=== PATIENT | female | born 2000 | race American Indian/Alaskan Native ===

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

== ENCOUNTER 2019-05-27 15:08 | Outpatient (CLI) | payer MEDICAID ==
[2019-05-27 15:56] LABS: Bacteria,Urine 1+ /HPF (Negative); Bilirubin,Urine NEG (Negative); Blood,Urine NEG (Negative); Color,Urine Yellow (Yellow); Mucus,Urine FEW /HPF; Protein,Urine <15 mg/dL mg/dL (Negative); Urobilinogen,Urine < 2.0 mg/dL (<2.0)
[2019-05-27 16:07] LABS: Hematocrit 34.4 % (30.3-42.9); Hemoglobin 11.7 gm/dl (10.1-14.3); Mean Corpuscular HGB Conc 34 % (30-34); Mean Corpuscular Volume 89 fl (79-97); Platelet Count 214 K/mm3 (140-440); Red Blood Count 3.89 M/mm3 (3.65-5.03); Red Cell Distribution Width 13.7 % (13.2-15.2)
[2019-05-27 16:30] LABS: Alanine Aminotransferase 12 units/L (7-56); Uric Acid 2.8 mg/dL (3.5-7.6)
[2019-05-27] MEDS ORDERED: ACETAMINOPHEN 500 MG TAB PO ONE (16:31)
[2019-05-27 17:24] VITALS: BP 123/64
--- NOTE | 2019-05-27 20:04 | Ultrasound Report ---
Limited obstetrical ultrasound INDICATION: Headache, possible preeclampsia, 38 week 3 day Term intrauterine is noted with fetus in a cephalic position. Cardiac activity was document ed with heart rate of 131 bpm. Amniotic fluid volume appears qualitatively acceptable for this stage of and MILTON is within normal limits at 9.3 cm. Anatomical survey was not performed and dating was not performed. BIOPHYSICAL PROFILE breathing movements: 2/2 movements: 2/2 posture and tone tone: 2/2 Qualitative amniotic fluid volume: 2/2 Total score: 8/8, within normal limits Signer Name: Martir Mathews MD Signed: 05/27/2019 7:59 PM Workstation Name: [email or web address]
[2019-05-28 20:10] LABS: Creatinine 24 Hour,Urine 1.3 (0.8-2.8); Creatinine,Urine 74.2 mg/dL (0.1-20.0)
== END 2019-05-27 18:18 | disposition home or self-care (01) ==
LOC: TRG 15:08
PROVIDERS: ATTEND Obstetrics & Gynecology
DX: O26.893 Other specified pregnancy related conditions, third trimester (principal); O47.1 False labor at or after 37 completed weeks of gestation; R51 Headache; Z3A.38 38 weeks gestation of pregnancy
CPT/HCPCS: 36415; 59025; 76815; 76819; 81001; 82565; 82570; 83615; 84156; 84450; 84460; 84550; 85027; 87086

== ENCOUNTER 2019-05-30 19:02 | Outpatient (CLI) | payer MEDICAID ==
[2019-05-30] MEDS ORDERED: ACETAMINOPHEN 325 MG TAB PO ONE (20:21)
[2019-05-30 20:32] VITALS: BP 130/67
== END 2019-05-30 21:06 | disposition home or self-care (01) ==
LOC: TRG 19:02
PROVIDERS: ATTEND Obstetrics & Gynecology
DX: O26.893 Other specified pregnancy related conditions, third trimester (principal); R51 Headache; Z3A.38 38 weeks gestation of pregnancy

== ENCOUNTER 2019-06-04 21:48 | Outpatient (CLI) | payer MEDICAID ==
[2019-06-04 22:17] VITALS: BP 116/56
--- NOTE | 2019-06-05 02:06 | Ultrasound Report ---
Limited OB ultrasound INDICATION: Amniotic fluid index FINDINGS: There is a single intrauterine in a cephalic presentation. heart rate is 119 bpm. Amniotic fluid index is 9.6 cm which is within the normal range. IMPRESSION: Amniotic fluid index is 9.6 cm. Signer Name: Jacob Ireland MD Signed: 06/05/2019 2:01 AM Workstation Name: [email or web address]
== END 2019-06-05 02:19 | disposition home or self-care (01) ==
LOC: TRG 21:48
PROVIDERS: ATTEND Obstetrics & Gynecology
DX: O42.92 Full-term premature rupture of membranes, unspecified as to length of time between rupture and onset of labor (principal); Z3A.39 39 weeks gestation of pregnancy
CPT/HCPCS: 76815

== ENCOUNTER 2019-06-06 02:53 | Inpatient (IN) | payer MEDICAID ==
[2019-06-06] MEDS ORDERED: ONDANSETRON 4 MG/2 ML INJ IV PRN ×2 (03:21→06:27)
[2019-06-06] MEDS ORDERED: fentaNYL 100 MCG/2 ML INJ IV PRN (03:21)
[2019-06-06] MEDS ORDERED: TERBUTALINE 1 MG/1 ML INJ SUB-Q PRN (03:21)
[2019-06-06] MEDS ORDERED: PROMETHAZINE 25 MG TAB PO PRN ×2 (03:21→06:27)
[2019-06-06] MEDS ORDERED: BUTORPHANOL 2 MG/1 ML INJ IV PRN (03:21)
[2019-06-06] MEDS ORDERED: AMPICILLIN/NS 2 GM/100 ML 2 GM/100 ML BAG IV ONE (03:21)
[2019-06-06] MEDS ORDERED: TERBUTALINE 1 MG/1 ML INJ IVP PRN (03:21)
[2019-06-06] MEDS ORDERED: MINERAL OIL 30 ML ORAL LIQD PO PRN (03:21)
[2019-06-06] MEDS ORDERED: LIDOCAINE (2%) 20 MG/1 ML VIAL 20 ML MDV INFILTRATI ONE (03:21)
[2019-06-06] MEDS ORDERED: NALOXONE 0.4 MG/1 ML INJ IV PRN (03:21)
[2019-06-06] MEDS ORDERED: ePHEDrine SULFATE 50 MG/1 ML INJ IV PRN (03:21)
[2019-06-06] MEDS: LACTATED RINGERS 1,000 ML IV SCH ×2 (03:57→05:37)
[2019-06-06] MEDS ORDERED: OXYTOCIN 20 UNIT/1000ML DRIP 20 UNITS/1,000 ML BAG IV SCH (04:00)
[2019-06-06 04:02] LABS: Hemoglobin 11.5 gm/dl (10.1-14.3); Mean Corpuscular HGB Conc 34 % (30-34); Mean Corpuscular Volume 88 fl (79-97); Platelet Count 213 K/mm3 (140-440); Red Blood Count 3.86 M/mm3 (3.65-5.03); Red Cell Distribution Width 13.5 % (13.2-15.2)
--- NOTE | 2019-06-06 05:40 | History and Physical Report ---
History of Present Illness Date of examination: 06/06/19 Date of admission: 06/06/19 03:21 Chief complaint: Contractions History of present illness: Pt is a 18 yo at at 39.6 weeks EGA who presents with regular uterine contractions. She reports positive movement and leaking fluid. She has received care with [facility] tubing operator since 14 weeks EGA, [place] [facility] [place] has been complicated by anemia and suspected left multicystic kidney and mild pericardial effusion. Fetus had an irregular heart rate, resolved at 37 weeks. Pt has had mildly elevated BP at the office, negative pree labs, always normotensive at hospital. Past History Past Medical History: no pertinent history Past Surgical History: no surgical history Family/Genetic History: none Social history: no significant social history - Obstetrical History Expected Date of Delivery: 06/07/19 Actual Gestation: 39 Week(s) 6 Day(s) : 1 Para: 0 Medications and Allergies Allergies Allergy/AdvReac Type Severity Reaction Status Date / Time No Known Allergies Allergy Verified 05/27/19 15:19 Home Medications Medication Instructions Recorded Confirmed Last Taken Type Docusate Sodium [Colace] 100 mg PO BID PRN #14 capsule 10/09/18 Unknown Rx Active Meds: Active Medications Butorphanol Tartrate (Stadol) 2 mg IV Q2H PRN PRN Reason: Pain , Severe (7-10) Ephedrine Sulfate (Ephedrine Sulfate) 10 mg IV Q2M PRN PRN Reason: Hypotension Fentanyl (Sublimaze) 100 mcg IV Q2H PRN PRN Reason: Labor Pain Last Admin: 06/06/19 04:33 Dose: 100 mcg Documented by: Oxytocin/Sodium Chloride (Pitocin/Ns 20 Unit/1000ml Drip) 20 units in 1,000 mls @ 125 mls/hr IV DIRECT MARIE Lactated Ringer's (Lactated Ringers) 1,000 mls @ 125 mls/hr IV DIRECT MARIE Last Admin: 06/06/19 03:57 Dose: 125 mls/hr Documented by: Ampicillin Sodium (Ampicillin/Ns 1 Gm/50 Ml) 1 gm in 50 mls @ 100 mls/hr IV Q4HR MARIE; Protocol Mineral Oil (Mineral Oil) 30 ml PO QHS PRN PRN Reason: Constipation Naloxone HCl (Naloxone) 0.1 mg IV Q2MIN PRN PRN Reason: Res Rate </= 8 or 02 SAT < 92% Ondansetron HCl (Zofran) 4 mg IV Q8H PRN PRN Reason: Nausea And Vomiting Promethazine HCl (Phenergan) 25 mg PO Q6H PRN PRN Reason: Nausea And Vomiting Terbutaline Sulfate (Brethine) 0.25 mg SUB-Q ONCE PRN PRN Reason: Hyperstimulation/Hypertonicity Terbutaline Sulfate (Brethine) 0.25 mg IVP ONCE PRN PRN Reason: Hyperstimulation/Hypertonicity Review of Systems All systems: negative Genitourinary: leakage of fluid, contractions - Vital Signs Vital signs: Vital Signs Temp Resp 97.0 F L 18 06/06/19 03:50 06/06/19 03:50 Temp Pulse Resp BP Pulse Ox 98.0 F 91 H 18 135/78 80 L 06/06/19 04:50 06/06/19 05:31 06/06/19 04:33 06/06/19 04:00 06/06/19 05:31 - Physical Exam Lungs: Positive: Normal air movement Abdomen: Positive: soft Results Result Diagrams: 06/06/19 03:30 All other labs normal. Assessment and Plan 18 yo at 39.6 weeks EGA Active labor GBS positive Membranes ruptured Suspected left multicystic kidney Mild pericardial effusion Admit for labor Notify peds of status Ampicillin prophylaxis Anticipate
--- NOTE | 2019-06-06 06:26 | Procedure Note ---
OB Delivery Note - Delivery Date of Delivery: 06/06/19 Surgeon: MARGE JONES ([facility]) Estimated blood loss: 300cc - Vaginal Delivery presentation: vertex Delivery position: OA Intrapartum events: PROM->1hr before delivery, mult. late decelerations Delivery induction: none Delivery monitor: external FHT, external uterine Route of delivery: Delivery placenta: spontaneous Delivery cord: 3 umbilical vessels Episiotomy: none Delivery laceration: none Anesthesia: intravenous Delivery comments: Excellent maternal effort resulted in of viable female . Head delivered OA. Manual restitution to ROT. Shoulders followed with gentle guidance. to maternal abdomen, stimulated, cord clamped and cut and handed to respiratory therapist. Initial uterine atony and brisk bleeding resolved with fundal massage and IV Pitocin infusion. No lacerations noted. Sponge and instrument counts correct x2. Apgars 8/9. - A at 1 minute: 8 at 5 minutes: 9 Infant Gender: Female
[2019-06-06] MEDS ORDERED: PROMETHAZINE 25 MG RECT SUPP PR PRN (06:27)
[2019-06-06] MEDS ORDERED: WITCH HAZEL/ GLYCERIN PAD TP PRN (06:27)
[2019-06-06] MEDS ORDERED: diphenhydrAMINE 25 MG CAP PO PRN (06:27)
[2019-06-06] MEDS ORDERED: ACETAMINOPHEN 325 MG TAB PO PRN (06:27)
[2019-06-06] MEDS ORDERED: LANOLIN/ZINC/DIMETHICONE (LANSINOH) 7 GM TP PRN (06:27)
[2019-06-06] MEDS ORDERED: AMPICILLIN/NS 1 GM/50 ML 1 GM/50 ML BAG IV SCH (07:23)
[2019-06-06] MEDS: IBUPROFEN 600 MG TAB PO SCH ×2 (11:19→23:38)
[2019-06-06] MEDS: PRENATAL VIT27-FE FUMARATE-FOLIC ACID VIT TAB PO SCH (11:21)
[2019-06-06] MEDS: FERROUS SULFATE 325 MG TAB PO SCH ×2 (11:21→22:13)
[2019-06-06 19:12] LABS: Hematocrit 31.8 % (30.3-42.9); Hemoglobin 10.7 gm/dl (10.1-14.3)
[2019-06-06] MEDS: MAGNESIUM HYDROXIDE (MOM) ORAL LIQD UDC PO PRN (22:14)
[2019-06-07] MEDS: IBUPROFEN 600 MG TAB PO SCH ×3 (06:12→22:24)
[2019-06-07] MEDS: PRENATAL VIT27-FE FUMARATE-FOLIC ACID VIT TAB PO SCH (10:18)
[2019-06-07] MEDS: FERROUS SULFATE 325 MG TAB PO SCH ×2 (10:19→22:17)
--- NOTE | 2019-06-07 10:51 | Progress Note ---
Assessment and Plan A/P PPD 1 doing well H/H 11-10 VSS d/c home tomorrow Subjective - Subjective Date of service: 06/07/19 Principal diagnosis: Patient reports: appetite normal, voiding normally, pain well controlled, flatus, ambulating normally Donaldson: doing well Objective - Vital Signs Latest vital signs: Vital Signs Temp Pulse Resp BP Pulse Ox 06/07/19 07:43 97.9 F 77 18 118/55 99 06/07/19 01:43 98.1 F 88 18 117/52 98 06/06/19 21:12 98.4 F 90 18 126/61 97 06/06/19 15:41 98.2 F 87 18 126/54 98 06/06/19 11:19 20 Intake and Output 06/06/19 06/07/19 06/07/19 23:59 07:59 15:59 Intake Total 1320 720 Balance 1320 720 Intake: Oral 600 Intake, Free Water 720 720 Other: Total, Intake Amount 600 # Voids Void 4 2 - Exam Breasts: Present: normal Cardiovascular: Present: Regular rate, Normal S1 Lungs: Present: Clear to auscultation, Normal air movement Abdomen: Present: normal appearance, soft, normal bowel sounds. Absent: distention, tenderness, guarding Uterus: Present: normal, firm, fundal height below umbilicus. Absent: bogginess, tenderness Extremities: Present: normal Deep Tendon Reflex Grade: Normal +2
--- NOTE | 2019-06-07 10:53 | Discharge Summary ---
Providers - Providers Date of Admission: 06/06/19 03:21 Date of discharge: 06/08/19 Attending physician: MJ ESPINOSA 06/06/19 06:32 Consult to Physician [CONS] Routine Comment: Consulting Provider: SKINNY BELL Physician Instructions: Reason For Exam: Suspected left multicystic kidney on US Primary care physician: MJ ESPINOSA Hospitalization Reason for admission: active labor Delivery: Episiotomy: none Laceration: none Incision: normal Other procedures: none Discharge diagnosis: IUP at term delivered [place] baby: female Hospital course: routine . course uneventful. d/c home PPD2 Condition at discharge: Good Disposition: DC-01 TO HOME OR SELFCARE Plan - Discharge Medications Prescriptions: Ferrous Sulfate [Ferrous Sulfate 324 MG] 324 mg PO BID #60 tablet. Ibuprofen [Motrin] 600 mg PO Q6H PRN #60 tablet PRN Reason: Pain oxyCODONE /ACETAMINOPHEN [Percocet 5/325] 1 tab PO Q6HR PRN #20 tablet PRN Reason: Pain - Provider Discharge Summary Activity: routine, no sex for 6 weeks, no strenuous exercise Diet: routine Instructions: routine Additional instructions: [] Smoking cessation referral if applicable(refer to patient education folder for contact #) [] Refer to [facility]'s [facility] Booklet Call your doctor immediately for: * Fever > 100.5 * Heavy vaginal bleeding ( >1 pad per hour) * Severe persistent headache * Shortness of breath * Reddened, hot, painful area to leg or breast * Drainage or odor from incision. * Keep incision clean and dry at all times and follow doctor's instructions regarding bathing/showering - Follow up plan Follow up: MJ ESPINOSA MD [Primary Care Provider] - 07/04/19
[2019-06-08] MEDS: IBUPROFEN 600 MG TAB PO SCH ×2 (00:14→10:50)
[2019-06-08] MEDS: FERROUS SULFATE 325 MG TAB PO SCH (10:43)
[2019-06-08] MEDS: PRENATAL VIT27-FE FUMARATE-FOLIC ACID VIT TAB PO SCH (10:44)
[2019-06-08] MEDS: MAGNESIUM HYDROXIDE (MOM) ORAL LIQD UDC PO PRN (12:25)
[2019-06-08 16:03] VITALS: BP 135/68
== END 2019-06-08 15:26 | disposition home or self-care (01) | DRG 775 ==
LOC: TRG 02:53 → LD 03:21 → TRG 03:21 → OB 08:25
PROVIDERS: ADMIT Obstetrics & Gynecology; ATTEND Obstetrics & Gynecology
PROC: 10E0XZZ Delivery of Products of Conception, External Approach (ICD-10-PCS; principal; 2019-06-06)
DX: O99.824 Streptococcus B carrier state complicating childbirth (principal); Z3A.39 39 weeks gestation of pregnancy; Z37.0 Single live birth; O42.02 Full-term premature rupture of membranes, onset of labor within 24 hours of rupture; O76 Abnormality in fetal heart rate and rhythm complicating labor and delivery
CPT/HCPCS: 36415; 85014; 85018; 85027; 86850; 86900; 86901; 88307; G0378; A6250; J0290; J2405; J2590; J3010; J7120

== ENCOUNTER 2019-10-08 19:29 | Emergency (ER) | payer MEDICAID ==
--- NOTE | 2019-10-08 20:46 | Event Note ---
ED Screening Note ED Screening Note: pt presents for bilateral temporal and frontal PÉREZ that began a week ago states she took one BC powder two days ago and thats it +nausea no photophobia no fever no v/d no numbness no weakness PMHx none no allergies to meds LNMP: 09/30/2019 This initial assessment/diagnostic orders/clinical plan/treatment(s) is/are subject to change based on patients health status, clinical progression and re- assessment by fellow clinical providers in the ED. Further treatment and workup at subsequent clinical providers discretion. Patient/guardian urged not to elope from the ED as their condition may be serious if not clinically assessed and managed.
[2019-10-08] MEDS ORDERED: IBUPROFEN 600 MG TAB PO ONE (21:24)
[2019-10-08] MEDS ORDERED: ONDANSETRON 4 MG ODT TAB PO ONE (21:24)
[2019-10-08] MEDS ORDERED: BUTALB/ACETAMINOPHEN/CAFFEINE TAB PO ONE (21:24)
--- NOTE | 2019-10-08 22:34 | Cat Scan Report ---
CT brain without contrast INDICATION: Pt complains of a severe headache.. TECHNIQUE: Routine CT head without contrast. All CT scans at this location are performed using CT dos e reduction for ALARA by means of automated exposure control. COMPARISON: None. FINDINGS: BRAIN / INTRACRANIAL CONTENTS: No acute hemorrhage, mass effect, midline shift, or hydrocephalus. No appreciable acute large territorial or lacunar infarct. ORBITS: No significant abnormality of visualized orbits. SINUSES / MASTOIDS: No significant abnormality of visualized sinuses and mastoid air cells. ADDITIONAL FINDINGS: None. IMPRESSION: 1. No acute intracranial abnormality. Signer Name: Moose Gore MD Signed: 10/08/2019 10:29 PM Workstation Name: [id number]
--- NOTE | 2019-10-08 22:58 | Emergency Department Report ---
ED Headache HPI - General Chief Complaint: Headache Stated Complaint: HEADACHE Time Seen by Provider: 10/08/19 20:43 Source: patient Exam Limitations: no limitations - History of Present Illness Initial Comments: Patient is a 19-year-old -[place] female with a history of chronic migraine headaches who presents to the ED with acute exacerbation of her chronic headache which she describes as her typical headaches for the last 1 week with intermittent nausea and vomiting. Patient states that she has been taking [id number] medications with no relief. Patient denies dizziness, syncope, change in vision, neck pain, chest pain, shortness of breath, fever, chills, cough, nasal and sinus congestion, abdominal pain, palpitations, fall or traumatic injury and loss of consciousness or seizures. Timing/Duration: 1 week Quality: severe, sharp Head Injury Location: global Recent Head Trauma: no recent headache/trauma, frequent headaches, chronic headaches Modifying Factors: improves with: medication Associated Symptoms: denies symptoms, nausea/vomiting. denies: confusion, fatigue, facial pain, fever/chills, flushing, loss of consciousness, nasal congestion, nasal drainage, numbness in legs/feet, rash, sinus infection, stiff neck, vision changes, weakness, other Allergies/Adverse Reactions: Allergies No Known Allergies Allergy (Verified 05/27/19 15:19) Home Medications: Ambulatory Orders Docusate Sodium [Colace] 100 mg PO BID PRN #14 capsule 10/09/18 Ferrous Sulfate [Ferrous Sulfate 324 MG] 324 mg PO BID #60 tablet. 06/06/19 Ibuprofen [Motrin] 600 mg PO Q6H PRN #60 tablet 06/06/19 oxyCODONE /ACETAMINOPHEN [Percocet 5/325] 1 tab PO Q6HR PRN #20 tablet 06/06/19 Butalb/Acetamin/Caff 50-325-40 [Fioricet 50-325-40] 1 - 2 tab PO Q6HR PRN #5 tab 10/08/19 Cyclobenzaprine [Flexeril] 10 mg PO Q8H PRN #15 tablet 10/08/19 Ketorolac [Toradol] 10 mg PO Q8H PRN #20 tablet 10/08/19 Ondansetron [Zofran Odt] 4 mg PO Q6HR PRN #15 tab.rapdis 10/08/19 ED Review of Systems ROS: Stated complaint: HEADACHE Other details as noted in HPI Constitutional: denies: chills, fever Eyes: denies: eye pain, eye discharge, vision change ENT: denies: ear pain, throat pain Respiratory: denies: cough, shortness of breath, wheezing Cardiovascular: denies: chest pain, palpitations Endocrine: no symptoms reported Gastrointestinal: nausea, vomiting. denies: abdominal pain, diarrhea Genitourinary: denies: urgency, dysuria, discharge Musculoskeletal: denies: back pain, joint swelling, arthralgia Skin: denies: rash, lesions Neurological: headache. denies: weakness, paresthesias Psychiatric: denies: anxiety, depression Hematological/Lymphatic: denies: easy bleeding, easy bruising ED Past Medical Hx - Past Medical History Previous Medical History?: No Hx Hypertension: No Hx Diabetes: No Hx Deep Vein Thrombosis: No Hx Renal Disease: No Hx Sickle Cell Disease: No Hx Seizures: No Hx Asthma: No Hx HIV: No - Surgical History Past Surgical History?: Yes Additional Surgical History: VAGINAL DELIVERY - Social History Smoking Status: Never Smoker Substance Use Type: Marijuana - Medications Home Medications: Home Medications Medication Instructions Recorded Confirmed Last Taken Type Docusate Sodium [Colace] 100 mg PO BID PRN #14 capsule 10/09/18 Unknown Rx Ferrous Sulfate [Ferrous Sulfate 324 mg PO BID #60 tablet.dr 06/06/19 Unknown Rx 324 MG] Ibuprofen [Motrin] 600 mg PO Q6H PRN #60 tablet 06/06/19 Unknown Rx oxyCODONE /ACETAMINOPHEN [Percocet 1 tab PO Q6HR PRN #20 tablet 06/06/19 Unknown Rx 5/325] Butalb/Acetamin/Caff 50-325-40 1 - 2 tab PO Q6HR PRN #5 tab 10/08/19 Unknown Rx [Fioricet 50-325-40] Cyclobenzaprine [Flexeril] 10 mg PO Q8H PRN #15 tablet 10/08/19 Unknown Rx Ketorolac [Toradol] 10 mg PO Q8H PRN #20 tablet 10/08/19 Unknown Rx Ondansetron [Zofran Odt] 4 mg PO Q6HR PRN #15 tab.rapdis 10/08/19 Unknown Rx ED Physical Exam - General Limitations: No Limitations General appearance: alert, in no apparent distress - Head Head exam: Present: atraumatic, normocephalic, normal inspection - Eye Eye exam: Present: normal appearance, PERRL, EOMI Pupils: Present: normal accommodation - ENT ENT exam: Present: normal exam, normal orophraynx, mucous membranes moist, TM's normal bilaterally, normal external ear exam - Neck Neck exam: Present: normal inspection, full ROM - Respiratory Respiratory exam: Present: normal lung sounds bilaterally. Absent: respiratory distress, wheezes, rales, rhonchi, chest wall tenderness, accessory muscle use, decreased breath sounds - Cardiovascular Cardiovascular Exam: Present: regular rate, normal rhythm, normal heart sounds. Absent: systolic murmur, diastolic murmur, rubs, gallop - GI/Abdominal GI/Abdominal exam: Present: soft, normal bowel sounds. Absent: tenderness, guarding - Extremities Exam Extremities exam: Present: normal inspection, full ROM, normal capillary refill - Back Exam Back exam: Present: normal inspection, full ROM. Absent: tenderness, CVA tenderness (R), muscle spasm, paraspinal tenderness - Neurological Exam Neurological exam: Present: alert, oriented X3, CN II-XII intact, normal gait, reflexes normal - Psychiatric Psychiatric exam: Present: normal affect, normal mood - Skin Skin exam: Present: warm, dry, intact, normal color. Absent: rash ED Course Vital Signs 10/08/19 10/08/19 20:44 23:12 Temperature 98.9 F 98.2 F Pulse Rate 80 80 Respiratory 18 18 Rate Blood Pressure 131/70 Blood Pressure 127/74 [Left] O2 Sat by Pulse 100 99 Oximetry ED Medical Decision Making - Radiology Data Radiology results: report reviewed, image reviewed - Medical Decision Making This is a 19-year-old -[place] female with a history of chronic migraine headaches who presents to the ED with acute exacerbation of her chronic headache which she describes as her typical headaches for the last 1 week with intermittent nausea and vomiting. Patient states that she has been taking [id number] medications with no relief. In the ED, patient is alert and oriented x3 and is not in distress. Patient was treated for pain in the ED and head CT scan without contrast shows no acute intracranial abnormalities or hemorrhage. On reevaluation, patient's headache is resolved with medications. Patient will discharge home on pain medications and advised to follow-up with her primary care physician in 5 to 7 days for reevaluation or return to the ED immediately if symptoms get worse. - Differential Diagnosis sinus headache; migraine headache; sinusitis; tension headache Critical care attestation.: If time is entered above; I have spent that time in minutes in the direct care of this critically ill patient, excluding procedure time. ED Disposition Clinical Impression: Nausea and vomiting in adult patient Migraine headache without aura Qualifiers: Status migrainosus presence: without status migrainosus Intractability: not intractable Qualified Code(s): G43.009 - Migraine without aura, not intractable, without status migrainosus Disposition: TO HOME OR SELFCARE Is pt being admited?: No Does the pt Need Aspirin: No Condition: Stable Instructions: Migraine Headache (ED), Acute Nausea and Vomiting (ED) Additional Instructions: The head CT scan without contrast showed no acute abnormalities. Therefore take medications as advised with food, drink plenty of fluids and follow-up with your primary care physician in 5 to 7 days for reevaluation. Return to the ED immediately if symptoms get worse. Prescriptions: Butalb/Acetamin/Caff 50-325-40 [Fioricet 50-325-40] 1 - 2 tab PO Q6HR PRN #5 tab PRN Reason: Headache Cyclobenzaprine [Flexeril] 10 mg PO Q8H PRN #15 tablet PRN Reason: Muscle Spasm Ketorolac [Toradol] 10 mg PO Q8H PRN #20 tablet PRN Reason: Pain Ondansetron [Zofran Odt] 4 mg PO Q6HR PRN #15 tab.rapdis PRN Reason: Nausea Referrals: CHUY HILL MD [Staff Physician] - 3-5 Days Time of Disposition: 22:59 Print Language: CAPE VERDEAN
[2019-10-08 23:13] VITALS: BP 127/74
== END 2019-10-08 23:12 | disposition home or self-care (01) ==
LOC: ED 19:29
DX: G43.009 Migraine without aura, not intractable, without status migrainosus (principal); R11.2 Nausea with vomiting, unspecified; F12.10 Cannabis abuse, uncomplicated; Z98.890 Other specified postprocedural states; Z79.1 Long term (current) use of non-steroidal anti-inflammatories (NSAID); Z79.899 Other long term (current) drug therapy
CPT/HCPCS: 70450; Q0162

== ENCOUNTER 2020-11-12 17:59 | Outpatient (CLI) | payer MEDICAID ==
[2020-11-12 20:13] VITALS: BP 134/65
[2020-11-12 20:53] LABS: Bacteria,Urine 1+ /HPF (Negative); Bilirubin,Urine NEG (Negative); Blood,Urine NEG (Negative); Color,Urine Yellow (Yellow); Mucus,Urine 1+ /HPF; Protein,Urine <15 mg/dL mg/dL (Negative)
== END 2020-11-12 21:26 | disposition home or self-care (01) ==
LOC: TRG 17:59 → APU 18:17 → TRG 21:26
PROVIDERS: ATTEND Obstetrics & Gynecology
DX: O26.893 Other specified pregnancy related conditions, third trimester (principal); R10.9 Unspecified abdominal pain; Z3A.36 36 weeks gestation of pregnancy
CPT/HCPCS: 59025; 81001

== ENCOUNTER 2020-11-27 14:56 | Outpatient (CLI) | payer MEDICAID, OTHER ==
[2020-11-27] MEDS ORDERED: ACETAMINOPHEN 500 MG TAB PO ONE (16:54)
[2020-11-27] MEDS ORDERED: LACTATED RINGERS 1,000 ML ONE (18:38)
[2020-11-27] MEDS ORDERED: LACTATED RINGERS 1,000 ML IV ONE (19:36)
[2020-11-27 19:52] VITALS: BP 119/82
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
== END 2020-11-27 20:30 | disposition home or self-care (01) ==
LOC: TRG 14:56 → APU 14:57 → TRG 20:30
PROVIDERS: ATTEND Obstetrics & Gynecology
DX: O26.893 Other specified pregnancy related conditions, third trimester (principal); R07.9 Chest pain, unspecified; R10.9 Unspecified abdominal pain; X58.XXXA Exposure to other specified factors, initial encounter; Y93.89 Activity, other specified; Y92.89 Other specified places as the place of occurrence of the external cause; Y99.8 Other external cause status; Z3A.38 38 weeks gestation of pregnancy
CPT/HCPCS: 59025; 76815; J7120

== ENCOUNTER 2020-11-28 17:34 | Inpatient (IN) | payer MEDICAID ==
[2020-11-28] MEDS ORDERED: LACTATED RINGERS 1,000 ML ONE (17:51)
[2020-11-28] MEDS ORDERED: OXYTOCIN DRIP 30,000 MILLIUNITS/500 ML BAG IV ONE (17:51)
[2020-11-28] MEDS ORDERED: OXYTOCIN 10 UNIT/1 ML INJ ONE (17:51)
[2020-11-28] MEDS ORDERED: OXYTOCIN 10 UNIT/1 ML INJ IM ONE (18:14)
[2020-11-28] MEDS ORDERED: miSOPROStol 200 MCG TAB ONE (18:17)
[2020-11-28] MEDS ORDERED: ePHEDrine SULFATE 50 MG/1 ML INJ IV PRN (18:28)
[2020-11-28] MEDS ORDERED: TERBUTALINE 1 MG/1 ML INJ SUB-Q PRN (18:28)
[2020-11-28] MEDS ORDERED: LACTATED RINGERS 1,000 ML IV SCH (18:30)
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
[2020-11-28] MEDS ORDERED: LIDOCAINE (2%) 20 MG/1 ML VIAL 20 ML MDV INFILTRATI ONE (18:45)
--- NOTE | 2020-11-28 18:46 | Procedure Note ---
OB Delivery Note - Delivery Date of Delivery: 11/28/20 Heel Cementer: ALECIA MAHAJAN Estimated blood loss: other (504ml) - Vaginal Delivery presentation: vertex Delivery position: OA Intrapartum events: precipitous labor- <3hr Delivery induction: none Delivery augmentation: rupture of membranes (clear fluid) Route of delivery: Delivery placenta: spontaneous Delivery cord: 3 umbilical vessels Episiotomy: none Delivery laceration: none Anesthesia: none Delivery comments: Pt presented to triage with BBOW. AROM clear fluid at delivery. Delivery of v iable male infant. Cord cut and clamped after cessation of pulse. handed to CARLOS for evaluation. Spontaneous delivery of placenta, intact, complete, 3 vessels noted. Pt with no IV. Cytotec 800mcg rectally and IM 10mg Pitocin administered. Fundus firm, minimal bleeding noted. Apgars 8,9. Infant weight 7- 9. QBL 504 ml. Infant and mother left in care of RN in stable condition.
[2020-11-28] MEDS ORDERED: miSOPROStol 200 MCG TAB PR ONE (19:00)
[2020-11-28] MEDS ORDERED: OXYTOCIN DRIP 30 UNITS/500 ML BAG IV SCH (19:00)
[2020-11-28 19:15] LABS: Hematocrit 35.9 % (30.3-42.9); Mean Corpuscular HGB Conc 34 % (30-34); Mean Corpuscular Volume 88 fl (79-97); Platelet Count 200 K/mm3 (140-440); Red Blood Count 4.07 M/mm3 (3.65-5.03); Red Cell Distribution Width 15.3 % (13.2-15.2)
[2020-11-28] MEDS ORDERED: LANOLIN/ZINC/DIMETHICONE (LANSINOH) 7 GM TP PRN (20:08)
[2020-11-28] MEDS ORDERED: PROMETHAZINE 25 MG RECT SUPP PR PRN (20:08)
[2020-11-28] MEDS ORDERED: diphenhydrAMINE 25 MG CAP PO PRN (20:08)
[2020-11-28] MEDS ORDERED: PROMETHAZINE 25 MG TAB PO PRN (20:08)
[2020-11-28] MEDS ORDERED: WITCH HAZEL/ GLYCERIN PAD TP PRN (20:08)
[2020-11-28] MEDS ORDERED: MAGNESIUM HYDROXIDE (MOM) ORAL LIQD UDC PO PRN (20:08)
[2020-11-28] MEDS ORDERED: ONDANSETRON 4 MG/2 ML INJ IV PRN (20:08)
[2020-11-28] MEDS: IBUPROFEN 600 MG TAB PO SCH (20:14)
[2020-11-28] MEDS: HYDROcodone/ACETAMINOPHEN 5-325 MG TAB PO PRN (22:09)
[2020-11-29] MEDS: DOCUSATE SODIUM 100 MG CAP PO SCH ×2 (04:25→11:38)
[2020-11-29] MEDS: IBUPROFEN 600 MG TAB PO SCH ×2 (05:56→15:35)
[2020-11-29 09:08] LABS: Hematocrit 29.3 % (30.3-42.9); Hemoglobin 9.8 gm/dl (10.1-14.3)
[2020-11-29] MEDS: PRENATAL VIT27-FE FUMARATE-FOLIC ACID VIT TAB PO SCH (11:38)
--- NOTE | 2020-11-29 13:24 | Progress Note ---
Assessment and Plan A: PPD#1 s/p at term P: Routine care Subjective - Subjective Date of service: 11/29/20 Principal diagnosis: s/p at term Interval history: No unusual complaints this morning Patient reports: appetite normal, voiding normally, pain well controlled, ambulating normally : doing well Objective - Vital Signs Latest vital signs: Vital Signs Temp Pulse Resp BP BP Pulse Ox 11/29/20 09:48 97.8 F 84 20 105/46 100 11/29/20 05:45 98.2 F 80 16 113/50 99 11/29/20 02:11 98.0 F 86 18 123/53 98 11/28/20 22:09 18 11/28/20 20:14 20 11/28/20 20:00 98.3 F 18 11/28/20 18:42 77 137/64 Intake and Output 11/28/20 11/29/20 11/29/20 22:59 06:59 14:59 Intake Total 240 Balance 240 Intake: Intake, Free Water 240 Other: # Voids Void 2 # Bowel Movements 1 Weight 87.543 kg Estimated Blood Loss 504 - Exam Breasts: Present: deferred Abdomen: Present: soft Uterus: Present: fundal height at umbilicus Extremities: Present: normal - Labs Labs: Abnormal lab results 11/28/20 11/29/20 Range/Units 18:56 08:43 Hgb 9.8 L (10.1-14.3) gm/dl Hct 29.3 L D (30.3-42.9) % RDW 15.3 H (13.2-15.2) %
[2020-11-29] MEDS: HYDROcodone/ACETAMINOPHEN 5-325 MG TAB PO PRN (20:37)
[2020-11-30] MEDS: HYDROcodone/ACETAMINOPHEN 5-325 MG TAB PO PRN ×2 (04:05→13:30)
[2020-11-30] MEDS: IBUPROFEN 600 MG TAB PO SCH ×2 (05:31→12:05)
--- NOTE | 2020-11-30 08:41 | Progress Note ---
Assessment and Plan A: PPD#2 s/p at term P: Continue with routine care with discharge anticipated this evening. Subjective - Subjective Date of service: 11/30/20 Principal diagnosis: s/p at term Interval history: PPD#1 s/p at term. Patient is feeling well and is without complaints. She reports lochia decreasing and pain well controlled. Patient reports: appetite normal, voiding normally, pain well controlled, ambulating normally : doing well Objective - Vital Signs Latest vital signs: Vital Signs Temp Pulse Resp BP BP Pulse Ox 11/30/20 04:05 20 11/29/20 23:35 98.5 F 76 20 105/56 99 11/29/20 20:37 18 11/29/20 17:34 97.7 F 91 H 18 129/60 97 11/29/20 11:40 97.9 F 84 18 122/72 96 11/29/20 09:48 97.8 F 84 20 105/46 100 Intake and Output 11/29/20 11/30/20 11/30/20 23:59 07:59 15:59 Intake Total 260 240 Balance 260 240 Intake: Oral 260 240 Other: Total, Intake Amount 260 240 # Voids Void 1 1 - Labs Labs: Abnormal lab results 11/29/20 Range/Units 08:43 Hgb 9.8 L (10.1-14.3) gm/dl Hct 29.3 L D (30.3-42.9) %
--- NOTE | 2020-11-30 08:41 | Discharge Summary ---
Providers - Providers Date of Admission: 11/28/20 19:32 Date of discharge: 11/30/20 Attending physician: MJ ESPINOSA Primary care physician: MJ ESPINOSA Hospitalization Reason for admission: active labor Delivery: Episiotomy: none Laceration: none Other procedures: none complications: none Discharge diagnosis: IUP at term delivered Hospital course: at term. course uncomplicated. Condition at discharge: Good Disposition: DC-01 TO HOME OR SELFCARE Plan - Discharge Medications Prescriptions: Ferrous Sulfate [Feosol 325 MG tab] 325 mg PO BID #60 tablet Ibuprofen [Motrin 600 MG tab] 600 mg PO Q8H PRN #30 tablet PRN Reason: Pain - Provider Discharge Summary Activity: routine, no sex for 6 weeks, no heavy lifting 4 weeks, no strenuous exercise Diet: routine Instructions: routine Additional instructions: [] Smoking cessation referral if applicable(refer to patient education folder for contact #) [] Refer to [facility]'s [facility] Booklet Call your doctor immediately for: * Fever > 100.5 * Heavy vaginal bleeding ( >1 pad per hour) * Severe persistent headache * Shortness of breath * Reddened, hot, painful area to leg or breast * Drainage or odor from incision. * Keep incision clean and dry at all times and follow doctor's instructions regarding bathing/showering - Follow up plan Follow up: MJ ESPINOSA MD [Primary Care Provider] - 14 Days
[2020-11-30] MEDS: PRENATAL VIT27-FE FUMARATE-FOLIC ACID VIT TAB PO SCH (12:05)
[2020-11-30] MEDS: DOCUSATE SODIUM 100 MG CAP PO SCH (12:05)
[2020-11-30 16:24] VITALS: BP 132/62
== END 2020-11-30 18:02 | disposition home or self-care (01) | DRG 775 ==
LOC: TRG 17:34 → APU 17:35 → LD 17:58 → TRG 19:31 → LD 19:32 → OB 21:59
PROVIDERS: ADMIT Obstetrics & Gynecology; ATTEND Obstetrics & Gynecology
PROC: 10E0XZZ Delivery of Products of Conception, External Approach (ICD-10-PCS; principal; 2020-11-28)
PROC: 10907ZC Drainage of Amniotic Fluid, Therapeutic from Products of Conception, Via Natural or Artificial Opening (ICD-10-PCS; 2020-11-28)
DX: O62.3 Precipitate labor (principal); Z20.822 Contact with and (suspected) exposure to COVID-19; Z3A.38 38 weeks gestation of pregnancy; Z37.0 Single live birth
CPT/HCPCS: 36415; 85014; 85018; 85027; 86592; 86850; 86900; 86901; 99211; G0378; G0463; J2590; U0003

== ENCOUNTER 2020-12-17 21:50 | Observation (INO) | payer MEDICAID, OTHER ==
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
[2020-12-18 00:16] LABS: Basophils # (Auto) 0.1 K/mm3 (0.0-0.1); Eosinophils # (Auto) 0.1 K/mm3 (0.0-0.4); Eosinophils % (Auto) 2.1 % (0.0-4.3); Hematocrit 36.9 % (30.3-42.9); Hemoglobin 12.5 gm/dl (10.1-14.3); Lymphocytes # (Auto) 2.3 K/mm3 (1.2-5.4); Lymphocytes % (Auto) 41.9 % (13.4-35.0); Mean Corpuscular HGB Conc 34 % (30-34); Mean Corpuscular Volume 88 fl (79-97); Monocytes # (Auto) 0.3 K/mm3 (0.0-0.8); Monocytes % (Auto) 5.6 % (0.0-7.3); Platelet Count 282 K/mm3 (140-440); Red Blood Count 4.18 M/mm3 (3.65-5.03); Red Cell Distribution Width 15.2 % (13.2-15.2)
[2020-12-18 00:29] LABS: Alanine Aminotransferase 8 units/L (7-56); Albumin 4.3 g/dL (3.9-5); Blood Urea Nitrogen 9 mg/dL (7-17); Calcium 8.9 mg/dL (8.4-10.2); Hemolysis Index 19
[2020-12-18 00:33] LABS: BUN/Creatinine Ratio 15
[2020-12-18 01:26] LABS: INR 1.03 (0.87-1.13); Partial Thromboplastin Time 26.5 Sec. (24.2-36.6)
[2020-12-18] MEDS ORDERED: MAGNESIUM SULFATE 40GM/1000ML 40 GM/1,000 ML BAG IV ONE ×2 (01:52→03:33)
[2020-12-18] MEDS ORDERED: MAGNESIUM SULFATE 4 GM/100 ML BAG IV ONE ×2 (01:52→03:34)
[2020-12-18 02:13] LABS: Bilirubin,Urine NEG (Negative); Blood,Urine SM (Negative); Color,Urine Colorless (Yellow); Protein,Urine <15 mg/dL mg/dL (Negative); Urobilinogen,Urine < 2.0 mg/dL (<2.0)
--- NOTE | 2020-12-18 02:52 | Cat Scan Report ---
CT HEAD WITHOUT CONTRAST INDICATION / CLINICAL INFORMATION: dizziness. young.. TECHNIQUE: All CT scans at this location are performed using CT dose reduction for ALARA by means of automated e xposure control. COMPARISON: Head CT 10/08/2019 FINDINGS: HEMORRHAGE: None. EXTRA-AXIAL SPACES: Normal in size and morphology for the patient's age. VENTRICULAR SYSTEM: Normal in size and morphology for the patient's age. CEREBRAL PARENCHYMA: No significant abnormality. No acute territorial infarct. MIDLINE SHIFT OR HERNIATION: None. CEREBELLUM / BRAINSTEM: No significant abnormality. ORBITS: Normal as visualized. SOFT TISSUES of HEAD: No significant abnormality. CALVARIUM: No significant abnormality. PARANASAL SINUSES / MASTOID AIR CELLS: Normal as visualized. ADDITIONAL FINDINGS: None. IMPRESSION: 1. No acute intracranial abnormality. Signer Name: Lopez Ahn MD Signed: 12/18/2020 2:48 AM Workstation Name: [id number]
[2020-12-18] MEDS ORDERED: LACTATED RINGERS 1,000 ML ONE (03:41)
[2020-12-18] MEDS: LACTATED RINGERS 1,000 ML IV SCH ×2 (04:00→14:44)
[2020-12-18] MEDS ORDERED: ACETAMINOPHEN 325 MG TAB PO PRN (14:19)
[2020-12-18] MEDS ORDERED: CALCIUM GLUCONATE 1000 MG/10 ML INJ IV ONE (15:00)
--- NOTE | 2020-12-18 16:30 | Short Stay Summary ---
Short Stay Documentation Date of service: 12/18/20 Narrative H&P: 20y/o s/p delivery on 11/28 presents with chest pain and tingling in her 2 fingers. The patient was evaluated in the emergency department with findings of elevated blood pressures. Her chemistries and blood count were within normal limits. The patient was admitted for suspected preeclampsia. The patient also presented with intermittent headaches. - History Principal diagnosis: preeclampsia Past Medical History: No medical history Social history: single - Allergies and Medications Current Medications: Allergies No Known Allergies Allergy (Verified 05/27/19 15:19) Home Medications Medication Instructions Recorded Confirmed Last Taken Type Docusate Sodium [Colace] 100 mg PO BID PRN #14 capsule 10/09/18 11/29/20 Unknown Rx Ferrous Sulfate [Ferrous Sulfate 324 mg PO BID #60 tablet. 06/06/19 11/29/20 Unknown Rx 324 MG] Ibuprofen [Motrin] 600 mg PO Q6H PRN #60 tablet 06/06/19 11/29/20 Unknown Rx oxyCODONE /ACETAMINOPHEN [Percocet 1 tab PO Q6HR PRN #20 tablet 06/06/19 11/29/20 Unknown Rx 5/325] Butalb/Acetamin/Caff 50-325-40 1 - 2 tab PO Q6HR PRN #5 tab 10/08/19 11/29/20 Unknown Rx [Fioricet 50-325-40] Cyclobenzaprine [Flexeril] 10 mg PO Q8H PRN #15 tablet 10/08/19 11/29/20 Unknown Rx Ketorolac [Toradol] 10 mg PO Q8H PRN #20 tablet 10/08/19 11/29/20 Unknown Rx Ondansetron [Zofran Odt] 4 mg PO Q6HR PRN #15 tab.rapdis 10/08/19 11/29/20 Unknown Rx metroNIDAZOLE [Flagyl] 500 mg PO BID 7 Days #14 tab 12/13/19 11/29/20 Unknown Rx Ferrous Sulfate [Feosol 325 MG tab] 325 mg PO BID #60 tablet 11/30/20 Unknown Rx Ibuprofen [Motrin 600 MG tab] 600 mg PO Q8H PRN #30 tablet 11/30/20 Unknown Rx Active Medications Acetaminophen (Acetaminophen 325 Mg Tab) 650 mg PO Q4H PRN PRN Reason: Pain, Mild (1-3) Last Admin: 12/18/20 14:43 Dose: 650 mg Documented by: Magnesium Sulfate (Magnesium Sulfate 40gm/1000ml) 40 gm in 1,000 mls @ 25 mls/hr IV ONCE ONE Stop: 12/19/20 17:51 Last Admin: 12/18/20 04:19 Dose: 1 gm/hr, 25 mls/hr Documented by: Lactated Ringer's (Lactated Ringers) 1,000 mls @ 100 mls/hr IV DIRECT MARIE Last Admin: 12/18/20 14:44 Dose: 100 mls/hr Documented by: - Physical exam General appearance: no acute distress Integumentary: no rash HEENT: Atraumatic Lungs: Clear to auscultation Breasts: deferred - Hospital course Hospital course: The patient was admitted through the emergency department with a working diagnosis of preeclampsia. The patient received 24 hours magnesium sulfate therapy with improvement of her symptoms. She was also given oral meds for her headaches. Check significant improvement in her blood pressures during her observation. The patient was discharged home. - Disposition Condition at discharge: Good Disposition: 01 HOME / SELF CARE / HOMELESS Short Stay Discharge Plan Activity: no restrictions Diet: regular Additional Instructions: Schedule visit in 2 weeks Prescriptions: Butalbit/Acetamin/Caff/Codeine [Fioricet/Codeine [id number]] 1 cap PO Q8HR PRN #20 cap PRN Reason: Headache
[2020-12-18] MEDS: BUTALB/ACETAMINOPHEN/CAFFEINE TAB PO PRN (18:43)
[2020-12-19] MEDS: BUTALB/ACETAMINOPHEN/CAFFEINE TAB PO PRN (01:44)
[2020-12-19 05:48] VITALS: BP 125/68
--- NOTE | 2020-12-22 17:17 | Electrocardiograph Report ---
[facility] Test Date: 2020-12-17 Test Time: 23:29:47 Pat Name: JUSTICE DSOUZA Department: Room: 2000 05 Gender: F Manufacturing Operator: CHERI : 2000 Requested By: RUTH GALVAN III Order Number: [id number] Reading MD: Michael Salazar Measurements Intervals Helen Rate: 76 P: 73 AL: 175 QRS: 83 QRSD: 88 T: 61 QT: 384 QTc: 436 Interpretive Statements Sinus rhythm Multiple ventricular premature complexes Probable left atrial enlargement No previous ECG available for comparison Electronically Signed On 12-22-2020 17:17:06 EDT by Michael Salazar
== END 2020-12-19 07:04 | disposition home or self-care (01) ==
LOC: ED 21:50 → LD 12-18 02:01 → ED 12-18 03:09
PROVIDERS: ADMIT Hospitalist; ATTEND Hospitalist
DX: O14.95 Unspecified pre-eclampsia, complicating the puerperium (principal); O89.4 Spinal and epidural anesthesia-induced headache during the puerperium; R07.9 Chest pain, unspecified; R42 Dizziness and giddiness
CPT/HCPCS: 36415; 70450; 71046; 80053; 81001; 83735; 84484; 84703; 85025; 85610; 85730; 93005; 96365; 96366; 99291; G0378; J3475; J7120; 96360; 96361